=== PATIENT | female | born 2000 | race Caucasian/White ===

== ENCOUNTER 2024-01-09 23:55 | Inpatient (IN) | payer OTHER, SELFPAY ==
[2024-01-09 19:42] VITALS: BP 120/82
--- NOTE | 2024-01-09 21:04 | ED.GENMED ---
History of Present Illness
<Anisa Brown PA-C - Last Filed: 01/10/24 00:31>
General
Chief Complaint: Extremity Pain (non-traumatic)
Source: patient
Exam Limitations: none
Time Seen by Provider: 01/09/24 20:18
Nursing documentation reviewed up to this point in time: agreed with
History of Present Illness
History of Present Illness:
Patient is a 23-year-old female with no significant past medical history presenting to the emergency department for evaluation of bilateral lower extremity weakness. Patient states symptoms initially started on and have been progressively
worsening. Patient describes a weakness in her bilateral lower extremities severe enough that she is unable to lift her legs without assistance. Patient is unable to ambulate independently without assistance. Patient denies any significant
weakness in her upper extremities. She denies any numbness in her lower extremities.
Patient denies any recent bug bites or rashes. Patient denies any fevers, chills, neck pain, chest pain, shortness of breath/difficulty breathing. Patient denies any abdominal pain or urinary symptoms. Patient denies any recent viral illnesses.
Of note�patient was seen at [facility] on Wednesday where she had an extensive workup with no abnormal findings. She was discharged on a floatman to further evaluate for POTS. She does have an appointment scheduled with a
neurologist tomorrow in [place].
Patient does report very similar symptoms occurring about 5 years ago. At that time she had extensive testing done including testing for multiple sclerosis, Guillain-Tovar� which were both negative. No family history of neurologic conditions. No
lumbar puncture done at that time
Review of Systems
<Anisa Brown PA-C - Last Filed: 01/10/24 00:31>
Review of Systems
Allergies reviewed?: Yes
All Other Systems: ROS reviewed and negative except as documented in HPI and ROS
Phy Exam
<Anisa Brown PA-C - Last Filed: 01/10/24 00:31>
Physical Exam
Physical Exam:
Vitals: Patient's vital signs are stable. Afebrile
General: Patient is well appearing, no acute distress. Nontoxic-appearing
Skin: Warm and dry, no rashes or lesions
Head: Normocephalic, atraumatic
Eyes: Sclera nonicteric. EOMs intact. No nystagmus.
Throat: Protecting airway
Neck: Normal ROM, no cervical spine tenderness, no meningismus. Trachea midline
Cardiac: Regular rate and rhythm, no murmurs.
Pulm: Normal respiratory effort, no wheezes, rales, rhonchi heard on exam.
Abdomen: Abdomen soft no abdominal tenderness.
Extremities: Decreased strength of bilateral lower extremities. 2+ patellar reflexes. Decreased Achilles reflexes bilaterally. Great distal pulses. Normal sensation to both light and dull touch in bilateral lower extremities. No joint swelling
or redness in bilateral lower extremities. Upper extremities with strength 5 out of 5 and normal hypercil core transformer assembler strength. Great distal pulses.
Neuro: AAOx3. CN II-XII intact. No focal neurologic deficits. Sensation fully intact.
Psychiatric: Normal affect.
Course
<Anisa Brown PA-C - Last Filed: 01/10/24 00:31>
Orders/Labs/Results
Orders:
Orders
01/09/24 21:18
Test Result ONCE
01/09/24 21:48
Complete Blood Count/With Diff Urgent
Comprehensive Metabolic Panel Urgent
HCG, Serum Qualitative Screen Urgent
Magnesium Urgent
TSH Reflex To Free T4 Urgent
Total CK [Creatine Phosphokinase] Urgent
Urinalysis Reflex To Culture Urgent
Date Specimen was Collected: 01/09/24
Time Specimen was Collected: 21:43
Urine Microscopic Reflex Cult Urgent
01/09/24 23:52
Admit/Transfer Patient As Directed
Co-Sign Provider:
Level of Care: Inpatient admission
Assign to:: Medical/Surgical
Physician / Group: Naya
Diagnosis: Lower Ext Weakness
Reason for Hospitalization: Neuro-checks; Neurology Consult
Expected length of stay greater than two midnights?: Yes
ELOS- Estimated Length of Stay in days: 3
I certify the patient meets the requirements for IP care: Yes
Abnormal Lab Results
01/09/24
21:48
RBC 4.12 L 10^6/uL
(4.20-5.40)
MCH 31.8 H pg
(27.0-31.0)
RDW 11.4 L %
(11.5-14.5)
Absolute Monos (auto) 0.8 H 10^3/uL
(0.1-0.6)
Urine Ketones 1+ A
(Negative)
Leukocyte Esterase Rfl Trace A
(Negative)
01/09/24 21:48
01/09/24 21:48
Vital Signs
Initial and Last Documented VS:
Initial Vital Signs
Temp Pulse Resp BP Pulse Ox
97.6 F 98 22 120/82 100
01/09/24 19:42 01/09/24 19:42 01/09/24 19:42 01/09/24 19:42 01/09/24 19:42
Last Documented Vital Signs
Temp Pulse Resp BP Pulse Ox
97.6 F 65 13 110/68 99
01/09/24 19:42 01/09/24 23:00 01/09/24 23:00 01/09/24 23:00 01/09/24 23:00
<Jack Roberts, - Last Filed: 01/09/24 23:06>
Orders/Labs/Results
Orders:
Orders
01/09/24 21:18
Test Result ONCE
01/09/24 21:48
Complete Blood Count/With Diff Urgent
Comprehensive Metabolic Panel Urgent
HCG, Serum Qualitative Screen Urgent
Magnesium Urgent
TSH Reflex To Free T4 Urgent
Total CK [Creatine Phosphokinase] Urgent
Urinalysis Reflex To Culture Urgent
Date Specimen was Collected: 01/09/24
Time Specimen was Collected: 21:43
Urine Microscopic Reflex Cult Urgent
01/09/24 23:52
Admit/Transfer Patient As Directed
Co-Sign Provider:
Level of Care: Inpatient admission
Assign to:: Medical/Surgical
Physician / Group: Naya
Diagnosis: Lower Ext Weakness
Reason for Hospitalization: Neuro-checks; Neurology Consult
Expected length of stay greater than two midnights?: Yes
ELOS- Estimated Length of Stay in days: 3
I certify the patient meets the requirements for IP care: Yes
Abnormal Lab Results
01/09/24
21:48
RBC 4.12 L 10^6/uL
(4.20-5.40)
MCH 31.8 H pg
(27.0-31.0)
RDW 11.4 L %
(11.5-14.5)
Absolute Monos (auto) 0.8 H 10^3/uL
(0.1-0.6)
Urine Ketones 1+ A
(Negative)
Leukocyte Esterase Rfl Trace A
(Negative)
01/09/24 21:48
01/09/24 21:48
Vital Signs
Initial and Last Documented VS:
Initial Vital Signs
Temp Pulse Resp BP Pulse Ox
97.6 F 98 22 120/82 100
01/09/24 19:42 01/09/24 19:42 01/09/24 19:42 01/09/24 19:42 01/09/24 19:42
Last Documented Vital Signs
Temp Pulse Resp BP Pulse Ox
97.6 F 65 13 110/68 99
01/09/24 19:42 01/09/24 23:00 01/09/24 23:00 01/09/24 23:00 01/09/24 23:00
<Anisa Brown PA-C - Last Filed: 01/10/24 00:31>
MDM/Problems Addressed
Differential Diagnosis Includes:
Not limited to: Viral myositis, rhabdomyolysis, hypokalemia, hypomagnesemia, thyrotoxic periodic paralysis, Guillain-Tovar�, transverse myelitis, myasthenic gravis, tickborne paralysis, conversion disorder
MDM/Problems Addressed:
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 Symptom onset was approximately 3 days ago. Patient unable to ambulate due to
weakness. Patient seen at outside hospital 2 days ago with reportedly negative workup including head CT, Lyme, labs, inflammatory markers. Does have follow-up scheduled with neurology tomorrow but came to emergency department tonight for further
evaluation. No known recent bug bites, rashes. Patient did apparently have very similar symptoms approximately 5 years ago with negative workup for Guillain-Tovar�, MS at that time although did not receive lumbar puncture. Patient has stable vital
signs on arrival. Physical exam as above. Patient is well-appearing, in no apparent distress. She does have significant decreased strength in bilateral lower extremities, symmetrical. Strength 1/5 in bilateral lower extremities with intact
patellar reflexes. Unable to elicit Achilles reflexes bilaterally. Patient does have great sensation and great distal pulses. Upper extremities with 5/5 strength and good hypercil core transformer assembler strength. Otherwise�patient is neurologically intact. No meningeal
signs.
Labs are obtained which show no acute abnormalities. No evidence of rhabdo, thyroid dysfunction, electrolyte derangements. There is somewhat wide differential including a viral myositis, transverse myelitis, tickborne illness, Guillain-Tovar�,
multiple sclerosis, etc. Patient unable to ambulate. Patient will be admitted to hospitalist for neuro eval, further workup. Offered patient lumbar puncture in emergency department tonight although she declined until she is seen by neurology.
Case was discussed with hospitalist. Patient accepted to hospitalist service. Plan for neurology consult, lumbar puncture, and possible MRI during admission. Will try to obtain records from prior hospitalizations.
Chronic conditions affecting care:
N/A
Acute Exacerbation and/or Progression of Chronic Illness:
N/A
<Anisa Brown PA-C - Last Filed: 01/10/24 00:31>
*Pulse Oximetry
Patient hypoxic: no
*EKG
Interpreted by ED Provider?: NA
*Signal Tower Director Interpretation
Rate: Signal Tower Director- N/A
*Critical Care Note
Total Time (30-74mins, 75-104mins- exclusive of procedures): Not Applicable
Data Reviewed
Review of Other/Old Records Reveals: Records (Outside hospital records from [facility])
Further Testing Considered But Not Given:
Lumbar puncture�patient refused until seen by neurology specialist.
<Anisa Brown PA-C - Last Filed: 01/10/24 00:31>
Patient Management
Discussion with other providers: Hospitalist
Escalation/DeEscalation of care consider admission/obs:
Admit for nuero eval/further workup
ED Attending Note
<Anisa Brown PA-C - Last Filed: 01/10/24 00:31>
-
Portions of this chart may have been created with voice recognition software.� Occasional wrong word or��sound alike� substitutions may have occurred due to the inherent limitations of voice recognition software.
<Jack Roberts DO - Last Filed: 01/09/24 23:06>
ED Attending Note
Patient seen and examined by attending physician: Yes
I performed the substantive portion of visit, reviewed & personally made and approve the management plan that is documented in note by myself or NORIS.: Yes
ED Attending Note:
Seen with PA examined independently 23-year-old female second episode of lower extremity weakness admitted to [facility] in [place] 5 years ago, with no definitive diagnosis they talked about Guillain-Tovar� Telzir was ruled out 5 sounds like
an EMG she had an MRI never underwent an LP, told that it could have been conversion disorder, never followed up with psychiatrist, symptoms returned for 5 days ago was seen at [facility] had a Holter like device put on for possible POTS has
an appointment to see neurology tomorrow she having trouble ambulating had numbness tingling separate feet, no fever no tick bite no rash is getting 'migraines', on exam she well-appearing normal mental status normal affect, does appear to have
decreased Achilles reflexes, concern is adequate to be discharged her to see neurology as an outpatient they would just send her back, I did recommend admission LP tonight, especially consultation she would like to wait for an LP until she speaks to
subspecialist, in the meantime we will try to get some records from [facility] differential would appear to be Guillain-Tovar�, MS, transverse myelitis, conversion disorders possibility, versus other neurologic issue she has no tick bites,
Discharge Plan
Departure
Patient Disposition: Admit
Date of Disposition: 01/09/24
Time of Disposition: 22:49
Presentation/result/management discussed w/ accepting MD/DO: Hospitalist
Discharge Problem:
Acute weakness
Interventions
Interventions:
*Risk Screen - Suicide Last Done: 01/09/24 19:42
*General Assessment Last Done: 01/09/24 21:47
*Neglect/Abuse Screening Last Done: 01/09/24 19:42
ED- Fall Risk Assessment Last Done: 01/09/24 23:01
*ED COVID-19 Vaccine History Last Done: 01/09/24 21:47
ED-Skin Assessment Last Done: 01/09/24 23:17
ED-Peripheral Vascular Assessment Last Done: 01/09/24 23:17
ED- Pulmonary Assessment Last Done: 01/09/24 23:01
ED- Neurological Assessment Last Done: 01/09/24 23:01
ED-Musculoskeletal Assessment Last Done: 01/09/24 23:16
ED- Cardiac Assessment Last Done: 01/09/24 23:01
[2024-01-09 21:30] VITALS: BMI 24.9
[2024-01-09 21:46] VITALS: BP 108/65
[2024-01-09 21:57] LABS: Urine Albumin Negative (Neg - Trace); Urine Bilirubin Negative (Negative); Urine Character Clear (Clear); Urine Color Yellow; Urine Glucose Negative (Negative); Urine Ketone 1+ (Negative); Urine Leukocyte Trace (Negative); Urine Nitrite Negative (Negative); Urine Occult Blood Negative (Negative); Urine Specific Gravity 1.015 (<1.030); Urine Urobilinogen Negative (Neg - 1+)
[2024-01-09 22:00] VITALS: BP 103/69
[2024-01-09 22:05] LABS: % Basophils 0.5 % (0-2); % Eosinophils 1.5 % (0-6); % Immature Granulocytes 0.4 % (0-0.5); % Lymphocytes 23.2 % (20.5-51.1); % Neutrophils 65.4 % (42.2-75.2); Absolute Eosinophils 0.1 10^3/uL (0-0.7); Absolute Monocytes 0.8 10^3/uL (0.1-0.6); Absolute Neutrophils 5.6 10^3/uL (1.4-6.5); Hematocrit 37.3 % (37.0-47.0); Hemoglobin 13.1 g/dL (12.0-16.0); Mean Corp Hgb Conc. 35.1 g/dL (33.0-37.0); Mean Corpuscular Hgb 31.8 pg (27.0-31.0); Mean Corpuscular Volume 90.5 fL (81.0-99.0); Mean Platelet Volume 9.1 fL (7.4-10.4); Nucleated Red Blood Cells % 0 %; Platelet Count 322 10^3/uL (130-400); Red Blood Cell Count 4.12 10^6/uL (4.20-5.40); Red Cell Dist. Width 11.4 % (11.5-14.5); White Blood Cell Count 8.5 10^3/uL (4.8-10.8)
[2024-01-09 22:06] LABS: Urine Red Blood Cell 0-2 /HPF (0-2); Urine White Cell 0-2 /HPF (0-5)
[2024-01-09 22:16] LABS: ALT (SGPT) 12 U/L (0-35); AST (SGOT) 23 U/L (14-36); Albumin 4.7 g/dl (3.5-5.0); Alkaline Phosphatase 64 U/L (38-126); Blood Urea Nitrogen 7 mg/dl (7-17); Carbon Dioxide 28 mmol/L (22-30); Chloride 104 mmol/L (98-107); Creatine Phosphokinase 58 U/L (30-135); Estimated Creatinine Clearance 115 ml/min; Glucose 90 mg/dl (70-99); Magnesium 1.8 mg/dl (1.6-2.3); Potassium 4.7 mmol/L (3.5-5.1); Sodium 137 mmol/L (135-145); Total Bilirubin 0.4 mg/dl (0.2-1.3); Total Protein 7.3 g/dl (6.3-8.2); eGFR > 60.00
[2024-01-09 22:17] LABS: HCG, Serum Qualitative Screen Negative
[2024-01-09 23:00] VITALS: BP 110/68
[2024-01-10] VITALS (7 sets, daily range): BP systolic 95–133; BP diastolic 52–73; BMI 22.0
--- NOTE | 2024-01-10 00:08 | HPS.HSE ---
Addendum entered and electronically signed by Monica Person DO 01/10/24 01:27:
The patient is seen and examined. I discussed the patient with Nikkie, and agree with her history and physical, assessment and plan of care as per below.
The patient has no respiratory complaints, and is able to swallow and eat without difficulty at this time.
VSS, respiratory status is stable at this time. AF.
PE - CV RRR, no m/r/g, Lungs CTA b/l, noted hypoactive/absent Babinski on the left foot, decreased on the right in addition to findings below
Concern is for GBS, no respiratory involvement at this time, hemodynamically stable
Neuro consultation pending, patient is declining LP in ED, will continue close monitoring of respiratory and neurologic status overnight, and plan for Neurology consultation, possible MRI, and LP in am.
Original Note:
Family Physician
-
Family Physician: Abraham Rush
Chief Complaint
-
Lower Extremity Weakness
History of Present Illness
Patient is a 23 y/o female past medical history of Ramón's thyroiditis who presents with lower extremity weakness. Patient developed lower extremity weakness 3 days ago. She was seen at an outside hospital 2 days ago, at which time she had
extensive work-up including Head CT, Lyme testing and inflammatory. Reportedly all testing was negative and she was discharged home. Patient reports over the weekend she continued with generalized weakness, but then today when she woke up from a
nap she was unable to ambulate due to severe lower extremity weakness. Patient reports a similar episode 5 years ago which she states resolved after several months of physical therapy. Patient denies any recent illnesses or recent immunizations.
Medical History
Past Medical History
Past Medical History: Reports Other
Additional Past Medical History:
Ramón's Thyroiditis
Past Surgical History: Reports None
Social History
Tobacco: Non-smoker
Alcohol: Occasional
Living: Alone
Family History
Family History: Not pertinent
Allergies / Home Medications
Allergies reflects when Allergies were last updated in [facility].
Home Medications with original date entered in [facility]
Allergy/Medication List:
Allergies
Allergy/AdvReac Type Severity Reaction Status Date / Time
ketorolac [From Toradol] Allergy Unknown Verified 01/09/24 19:47
latex Allergy Unknown Verified 01/09/24 19:47
Home Medications
thyroid (pork) 15 mg tablet ([place] Thyroid) 15 mg PO DAILY 01/10/24
Review of Systems
-
A 12 point ROS was completed and negative except as noted: Yes
Constitutional: Denies Fever or Chills
Respiratory: Denies Cough or Trouble Breathing
Cardiac: Denies Chest Pain or Palpitations
Physical Exam
Vital Signs
Vital Signs
Temp Pulse Resp BP Pulse Ox
97.6 F 65 13 110/68 99
01/09/24 19:42 01/09/24 23:00 01/09/24 23:00 01/09/24 23:00 01/09/24 23:00
Physical Exam
General: Well Developed and Well Nourished
HEENT: Anicteric and Moist mucous membranes
Respiratory: Clear and Non Labored Respirations
Cardiac: S1/S2 and Regular Rhythm
GI: Soft and Non Tender
Musculoskeletal: No Clubbing, No Cyanosis and No Edema
Skin: Warm and Dry
Neuro: Awake, Alert, Oriented and Other (4/5 strength bilateral upper extremities; 1/5 strength bilateral lower extremities; Intact patella reflex)
Laboratory Results
-
01/09/24 21:48
01/09/24 21:48
Laboratory Results
Total Bilirubin 0.4 mg/dl (0.2-1.3) 01/09/24 21:48
AST 23 U/L (14-36) 01/09/24 21:48
ALT 12 U/L (0-35) 01/09/24 21:48
Alkaline Phosphatase 64 U/L (38-126) 01/09/24 21:48
Data Reviewed
-
Lab Data: Labs Reviewed by me
Old Records: Requested
Impression/Plan
-
Acute Lower Extremity Weakness, unclear etiology with wide differential including Guillain [place], MS and CIDP
-Consult Neurology
-At this time patient is refusing LP until seen by Neurology
-Monitor neuro-checks, and NIF
Ramón's Thyroiditis
-Continue Armoud Thyroid
DVT proph: Lovenox
Code Status: Full Code
--- NOTE | 2024-01-10 02:58 | PTCARENOTE ---
Pt arrived to floor via stretcher from the ED. Pt AAOx3. pt OOB with assist of 2. Pt able to ambulate x2, unable to bear own wt. Pt assisted to BR, then assisted into bed. Pt unable to lift legs up into bed on own. Once in bed, neuro assessment
performed as ordered. pt unable to lift legs off bed, able to wiggle toes, denies any loss in sensation, unable to hold legs up against gravity. B/L UE strength good at this time, but pt reports intermittent weakness of B/L UE. Pt instructed to
notify this RN with any changes of weakness. Pt with remote tele monitor in place on anterior chest, with associated [employer] monitor cell phone to be held close by at all times, placed 01/06 at [facility]. Palpable peripheral pulses
present. Right AC int capped. no other abnormalities noted in assessment at this time. Friend at bedside staying the night. Call cason in reach. Will continue to monitor.
--- NOTE | 2024-01-10 04:20 | PTCARENOTE ---
Pt sleeping comfortably. No changes in assessment noted at this time. Friend remains at bedside. Will continue to monitor.
[2024-01-10 07:21] LABS: Hematocrit 36.6 % (37.0-47.0); Hemoglobin 12.7 g/dL (12.0-16.0); Mean Corp Hgb Conc. 34.7 g/dL (33.0-37.0); Mean Corpuscular Hgb 32.2 pg (27.0-31.0); Mean Corpuscular Volume 92.9 fL (81.0-99.0); Platelet Count 264 10^3/uL (130-400); Red Blood Cell Count 3.94 10^6/uL (4.20-5.40); Red Cell Dist. Width 11.3 % (11.5-14.5); White Blood Cell Count 6.7 10^3/uL (4.8-10.8)
[2024-01-10 07:29] LABS: Blood Urea Nitrogen 7 mg/dl (7-17); Calcium 9.6 mg/dl (8.4-10.2); Carbon Dioxide 24 mmol/L (22-30); Chloride 104 mmol/L (98-107); Estimated Creatinine Clearance 115 ml/min; Glucose 91 mg/dl (70-99); Magnesium 1.9 mg/dl (1.6-2.3); Potassium 4.1 mmol/L (3.5-5.1); Sodium 137 mmol/L (135-145); eGFR > 60.00
[2024-01-10] MEDS: ARMOUR THYROID 15 MG PO (07:40)
--- NOTE | 2024-01-10 08:08 | W.PN.HOSP.TC ---
Today's Communication/Plan
-
see plan
Assessment / Plan
Assessment / Plan
Acute Lower Extremity Weakness, unclear etiology with wide differential including Guillain [place], MS and CIDP
-Consult Neurology
-At this time patient is refusing LP and MRI until seen by Neurology - sent Dr. Yaw mehta TT this AM to discuss case
-Monitor neuro-checks, and NIF
-similar experience happened 5 years ago, patient states she was given no diagnosis or intervention and sx improved with PT
Ramón's Thyroiditis
-Continue Armoud Thyroid
DVT proph: Lovenox
Code Status: Full Code
Anticipated Discharge: > 48 hours
Subjective/Interval History
-
Date of Service: January 10, 2024
severe bilateral LE weakness
unable to lift legs off bed
no difficulty breathing or speaking
Objective Data
-
Labs:
Laboratory Results
01/09/24 01/10/24
21:48 06:46
WBC 8.5 6.7
Hgb 13.1 12.7
Hct 37.3 36.6 L
Plt Count 322 264
Sodium 137 137
Potassium 4.7 4.1
Chloride 104 104
Carbon Dioxide 28 24
BUN 7 7
Creatinine 0.6 0.6
Glucose 90 91
Calcium 10.0 9.6
Total Bilirubin 0.4
AST 23
ALT 12
Alkaline Phosphatase 64
Vital Signs:
Vital Signs
Temp Pulse Resp BP Pulse Ox
98.6 F 69 16 102/55 98
01/10/24 07:35 01/10/24 07:35 01/10/24 07:35 01/10/24 07:35 01/10/24 07:35
I&O
01/09/24 01/10/24 01/11/24
06:59 06:59 06:59
Intake Total 240 / 240
Balance 240 / 240
Review of Systems
-
History Source: Patient
All other systems: Reviewed and negative
Physical Exam
-
General: No Apparent Distress
HEENT: PERRLA
Respiratory: Clear to Auscultation; Negative Wheezes
Cardiac: Regular Rhythm and S1/S2
GI: Soft and Nontender
Musculoskeletal: No Edema
Skin: Warm and Dry; Negative Rash
Neuro: AO x 3 and Other (can wiggle left toes; cannot lift left leg off bed; cannot move right LE; no pronator drift, KELLY, no facial asymmetry, speech clear )
Psych: Calm
Data Reviewed
-
Diagnostic Radiology: Report Reviewed by me
Labs: Labs Reviewed by me
[2024-01-10 08:36] LABS: Folate 6.5 ng/ml (2.76-20); Vitamin B12 295 pg/ml (239-931)
--- NOTE | 2024-01-10 10:20 | CM ---
Patient seen at bedside with family member. Patient stated that she lives in an apartment on the second floor. patient has 10 steps to enter home. Patient PCP is Dr. Islas from [facility] and she uses the [facility] in [place]. Patient has
never needed DME or SNF/VN prior to admission and was independent of ADL's and IADL's. Patient may need PT/OT assessment for functional assessments prior to discharge. CM will continue to follow for discharge planning needs.
Plan; home with VN/ watch for possible Acute Rehab needs.
--- NOTE | 2024-01-10 11:46 | CON.NEURO4 ---
Consultation - Neurology 4
-
CONSULTING PHYSICIAN: Lv Tidwell MD (Neurology)
REFERRING PHYSICIAN: Hospitalist
DICTATED BY: Lv Tidwell MD
DATE/TIME OF REQUEST: January 10, 2024
DATE/TIME OF CONSULTATION: January 10, 2024 0900
Reason for Consultation: Leg weakness
History of Present Illness:
This is a 23 year old right handed female who has presented to the hospital with (chief complaint) of bilateral leg weakness. She gives a history of hypothyroidism/Ramón's disease? Who had been in her usual state of health till July 2018.
At that time she had presented with similar complaints of leg weakness. She was initially seen at [facility] and later at [facility]. She had an extensive neurovascular evaluation which included multiple MRI
studies of the brain and spine. She had underwent an EMG nerve conduction study of the legs. All the studies were within normal limits. Her symptoms resolved gradually with the aid of physical therapy
She was in her usual state of health till evening when she again had tingling and numbness in her legs and hands. She went to the emergency room at [facility]. She had a CT of her head and routine blood work. She was then
discharged from the emergency room and advised to follow-up with neurology and psychiatry as an outpatient.
Patient denies any recent bug bites or rashes. Patient denies any fevers, chills, neck pain, chest pain, shortness of breath/difficulty breathing. Patient denies any abdominal pain or urinary symptoms. Patient denies any recent viral illnesses.
She was discharged on a chip frier to further evaluate for POTS. She had an appointment scheduled with a neurology in [place].
Pat stated she most likely has aconversion d/o
Past Medical History: Hypothyroidism
Surgical History: None
Family History: [place]
Social History: Lives at home with her significant other, does not smoke or use alcohol. Works in automotive sales
Allergies: Toradol and latex
Home Medications: Chrisman Thyroid
Review of Symptoms:
Patient denies any fever, headache, chest pain, shortness of breath, GI or symptoms.
�Per the HPI.�All systems are reviewed negative except above.
�
Vital Signs:
The patient has a Temp 37.0 C Pulse 69 Resp16 BP 102/55 Pulse Ox 98
Physical Exam:
The patient is afebrile, heart sounds S1 and S2 are regular , and chest is clear to auscultation bilaterally.
Neurologic Examination:
The patient is awake, alert and oriented x 3. She is able to follow commands and answer questions appropriately. There is no aphasia or dysarthria. On cranial nerve assessment, pupils are 3 mm bilateral, round and reactive to light and
accommodation. Visual juarez are full. Extraocular movements are intact. Facial sensations are intact and bilaterally symmetrical, there is no facial asymmetry. Hearing is intact bilaterally to normal conversation volume. Tongue palate and uvula
are midline. Sternocleidomastoid strengths are full bilaterally.
Motor strengths are 5/5 bilateral upper and lower extremities on medical research [place] scale. There is no drift or involuntary movement noted. Giveaway pattern of weakness in the lower extremities
Deep tendon reflexes are 2+ bilateral upper and lower extremities and Babinski is absent bilaterally. Sensations of pain, touch, temperature and vibration are intact and bilaterally symmetrical. There was no extinction noted on double simultaneous
stimulation. Coordination is intact by finger to nose bilaterally. Romberg's unsteady. Gait assisted. Patient had no difficulty bearing her weight.
Lab Results: Addendum
Neuro Imaging: MRI of head, Cervical spine and Lumbar spine reports from outside hospital were reviewed.
Impression:
Ms. EVI OCHOA is a 23 year old F who has presented to the hospital with lower extremity weakness that is of a giveaway pattern
Differentials for the patient's presentation include:
1. Conversion d/o
2. Myelopathy
3. Demyelinating disease
Recommendations:
1. MRI of thoracic spine with and without gadolinium
2. Lyme's titers
3. B12 injection
Discussed patient care with: Hospitalist
Medications
-
Active Medications
Generic Name Dose Route Start Last Admin
Trade Name Freq PRN Reason Stop Dose Admin
Acetaminophen 650 mg 01/10/24 02:01
Acetaminophen 325 Mg Tablet PO 02/07/24 02:00
Q4HPRN PRN
mild pain/ fever>100.5F
Enoxaparin Sodium 40 mg 01/10/24 18:00
Enoxaparin Sodium 40 Mg/0.4 Ml Syringe SC 02/07/24 17:59
QPM JOURDAN
Sodium Chloride 0 flush 01/10/24 02:00
Sodium Chloride 0.9% (Flush) Syringe IV 02/07/24 01:59
PER PROTOCOL JOURDAN
Thyroid 15 mg 01/10/24 08:00 01/10/24 07:40
Thyroid 30 Mg (0.5 Grain) Tablet PO 02/07/24 07:59 15 mg
DAILY JOURDAN Administration
Home Medications
�Medication �Instructions �Recorded
thyroid (pork) 15 mg tablet 15 mg PO DAILY Thyroid 01/10/24
(Chrisman Thyroid)
Vital Signs and Labs
-
Vital Signs and Labs:
Vital Signs
Temp Pulse Resp BP Pulse Ox
37.0 C 69 16 102/55 98
01/10/24 07:35 01/10/24 07:35 01/10/24 07:35 01/10/24 07:35 01/10/24 07:35
Lab Results
01/10/24 06:46
01/10/24 06:46
Sodium 137 mmol/L (135-145) 01/10/24 06:46
Potassium 4.1 mmol/L (3.5-5.1) 01/10/24 06:46
BUN 7 mg/dl (7-17) 01/10/24 06:46
Glucose 91 mg/dl (70-99) 01/10/24 06:46
Calcium 9.6 mg/dl (8.4-10.2) 01/10/24 06:46
Vitamin B12 295 pg/ml (823-348) 01/10/24 06:46
Allergies
-
Allergies
Allergy/AdvReac Type Severity Reaction Status Date / Time
ketorolac [From Toradol] Allergy Unknown Verified 01/09/24 19:47
latex Allergy Unknown Verified 01/09/24 19:47
[2024-01-10] MEDS: CYANOCOBALAMIN 1000 MCG IM (14:01)
[2024-01-10 14:39] LABS: Lyme Antibody Screen, EIA Negative (Negative)
[2024-01-11 03:50] VITALS: BP 102/57
[2024-01-11 04:05] VITALS: BP 102/57
[2024-01-11 07:43] VITALS: BP 101/65
[2024-01-11] MEDS: ARMOUR THYROID 15 MG PO (08:13)
--- NOTE | 2024-01-11 09:11 | W.PN.HOSP.TC ---
Today's Communication/Plan
-
see plan
Assessment / Plan
Assessment / Plan
Acute Lower Extremity Weakness
concern for vitamin B12 deficiency; unclear if conversion disorder contributing given clinical presentation (dramatic improvement in just 24 hours; patient denies any significant stressors)
-similar experience happened 5 years ago, patient states she was given no diagnosis or intervention and sx improved with PT
-symptoms significantly better this AM'
-continue IM B12 then change to 1000mcg daily on DC
-continue PT/OT evals
-approaching DC today or tomorrow with close outpatient follow up including with psychology
-F/U MMA, homocysteins and intrinsic factor; parietal cell antibodies - can be followed up outpatient
Ramón's Thyroiditis
-Continue [place] Thyroid
DVT proph: Lovenox
Code Status: Full Code
Anticipated Discharge: Within 24 hours
Subjective/Interval History
-
Date of Service: January 11, 2024
patient states that after vitamin B12 injection she felt improvement in her strenght
this morning she can lift both legs off of the bed
Objective Data
-
Vital Signs:
Vital Signs
Temp Pulse Resp BP Pulse Ox
98.5 F 72 16 101/65 100
01/11/24 07:43 01/11/24 07:43 01/11/24 07:43 01/11/24 07:43 01/11/24 07:43
I&O
01/10/24 01/11/24 01/12/24
06:59 06:59 06:59
Intake Total 240 / 240 1420 / 1420
Balance 240 / 240 1420 / 1420
Review of Systems
-
History Source: Patient
All other systems: Reviewed and negative
Physical Exam
-
General: No Apparent Distress
HEENT: PERRLA
Respiratory: Clear to Auscultation; Negative Wheezes
Cardiac: Regular Rhythm and S1/S2
GI: Soft and Nontender
Musculoskeletal: No Edema
Skin: Warm and Dry; Negative Rash
Neuro: AO x 3 and Other (can lift b/l LE off bed and hold against resistance)
Psych: Calm
Data Reviewed
-
Diagnostic Radiology: Report Reviewed by me
Labs: Labs Reviewed by me
[2024-01-11] MEDS: CYANOCOBALAMIN 1000 MCG IM (10:00)
--- NOTE | 2024-01-11 11:02 | CM ---
Reviewed the chart notes. Per note, improvement in symptoms after B-12 injection. CM continues to be available to patient/family and is monitoring medical plan for needs at discharge.
Plan: Discharge to home when medically stable. No needs anticipated.
--- NOTE | 2024-01-11 13:27 | W.DS.TRANS ---
DC Summary - Shipping Agent
-
Discharge Instructions:
Discharge Diagnosis/Procedures Possible Vitamin B 12 Deficiency, Conversion
Disorder
Diet Regular
Activity As tolerated
Driving Restrictions As prior to admission
Bathing Restrictions None
Other Services PT
Instructions:
Stand-Alone Forms:
Changes to Home Medications: Yes
Discharge Medications:
DC Medications w/original date entered in [employer]
thyroid (pork) 15 mg tablet (Cherry Thyroid) 15 mg PO DAILY Thyroid 01/10/24
cyanocobalamin (vitamin B-12) 1,000 mcg capsule 1,000 mcg PO DAILY #30 caps 01/11/24
Home Medication Changes
addition of vitamin B12
Pending Results: Yes
Additional Pending Results:
MMA, Homocysteine, antiparietal cell Ab; intrinsic factor ab
--- NOTE | 2024-01-11 13:28 | W.DCSUMMARY ---
Discharge Summary
Discharge Data
Date of Admission: 01/09/24
Date of Discharge: 01/11/24
-
Pending Results: Yes
Additional Pending Results:
MMA, Homocysteine, Intrinsic Factor AB, anti-parietal Cell AB
Hospital Course
Discharging Physician : Dr. Zulay Ledesma
Disposition : Home
Primary care physician : Dr. Abraham Rush
Principal Discharge diagnosis : Possible Vitamin B12 Deficiency, concern for conversion disorder
Hospital Course :
Ms. Suzette Roberts is a 23 yo woman with hx hypothyroidism, recent ER visit for weakness (s/p work-up with negative head CT, lyme testing and discharged on a property assessment monitor) presents to the ER with progressive weakness, now unable to stand or ambulate
without assistance. Triage vitals stable and labs essentially unremarkable. LP and MRI discussed with patient but she preferred to have neurology evaluation fist. Patient stated she had a similar episode 5 years ago s/p work-up with MRI's without
official diagnosis made and it improved with physical therapy. Thoracic MRI not done at that time and was performed here - findings WNL. Vitamin B12 noted to be 295. She was given IM supplementation. Patient reported significant improved post
B12 administration. On my initial exam she was unable to move LE and on hospital day 2 she was able to hold b/l LE off bed in setting of resistance. Clinical presentation and immediate response to one dose of B12 does not fit B12 deficiency as
sole diagnosis. She is not anemia, MCV WNL. MMA and Homocysteine testing sent to confirm diagnosis; as well as anti-parietal cell and intrinsic factor ab (all pending at time of discharge). Concern raised for conversion disorder and this was
discussed with patient who states was on differential for last episode. Patient's motor function improved to the point she now feels comfortable going home and states she will be in the care of family. She will follow up with PCP.
Time spent on discharge was 35 minutes.
Important imaging findings :
Thoracic Spine MRI
IMPRESSION:
Unremarkable MRI examination of the thoracic spine.
Procedure findings :
Discharge Plan
-
Patient Disposition: Home (Routine Discharge)
Discharge Diagnosis/Procedures: Possible Vitamin B 12 Deficiency, Conversion Disorder
Diet: Regular
Activity: As tolerated
Driving Restrictions: As prior to admission
Bathing Restrictions: None
Other Services: PT
Activity Restrictions/Additional Instructions:
Please follow up with Dr. Rush to go over confirmation testing of B12 deficiency.
Please follow up with a psychologist to discuss concern for conversion disorder contributing to lower extremity weakness findings.
Referrals:
Abraham Rush MD [Family Provider] - in less than 1 week
Additional Discharge Medication Instructions: You are started on Vitamin B12 repletion 1,000mcg daily.
Prescriptions:
New
cyanocobalamin (vitamin B-12) 1,000 mcg capsule
1,000 mcg PO DAILY Qty: 30 0RF
Continued
thyroid (pork) [[place] Thyroid] 15 mg Tablet
15 mg PO DAILY
Discharge Orders:
Discharge Patient (As Directed); Ordered 01/11/24
Ordered By: Zulay Ledesma
Discharge Date and Time
Print Language: [id number]
[2024-01-11 15:04] VITALS: BP 109/73
[2024-01-12 21:28] LABS: Homocysteine 11 umol/L (0-15)
[2024-01-13 16:06] LABS: Intrinsic Factor Blocking Ab Negative (Negative)
[2024-01-13 22:22] LABS: Gastric Parietal Cell Ab, IgG 4.1 Units (0.0-24.9)
[2024-01-15 05:09] LABS: Methylmalonic Acid <0.10 umol/L (0.00-0.40)
== END 2024-01-11 15:49 | disposition home or self-care (01) | DRG 641 ==
LOC: 2 SOUTH 23:55
PROVIDERS: Physician Assistant; Physician Assistant Medical; ADMITTING PHYSICIAN Internal Medicine; ATTENDING PHYSICIAN Student in an Organized Health Care Education/Training Program; EMERGENCY PHYSICIAN Emergency Medicine; FAMILY PHYSICIAN Family Medicine; OTHER PHYSICIAN Psychiatry & Neurology Neurology
DX: E53.8 Deficiency of other specified B group vitamins (principal); F44.9 Dissociative and conversion disorder, unspecified; E06.3 Autoimmune thyroiditis
CPT/HCPCS: 72157; 80048; 80053; 81003; 81015; 82550; 82607; 82746; 83090; 83516; 83735; 83921; 84443; 84703; 85025; 85027; 86340; 86618; 96372; 97116; 97163; 97166; 97530; 97535; 99285; A9575